=== PATIENT | female | born 1950 | race American Indian/Alaskan Native ===

== ENCOUNTER 2016-05-28 12:38 | Emergency (ER) | payer MEDICARE ==
--- NOTE | 2016-05-28 13:15 | Emergency Department Report ---
Entered by GALLITO BUNN, acting as scribe for ALLAN ANDREWS NP. Chief Complaint: Abdominal Pain Stated Complaint: RIGHT SIDE PAIN/VOMITING/VOMITING Time Seen by Provider: 05/28/16 13:10 - HPI History of Present Illness: 66 y/o female presents c/o 08/19, sharp, achy right sided abd pain that started 2 days ago. Sx include vomiting and loss of appetite but pt denies pain during urination or hematuria. - ROS Review of Systems: +loss of appetite +vomiting -pain during urination -hematuria - Exam Vital Signs: Vital Signs 05/28/16 13:10 Temperature 98.1 F Pulse Rate 114 H Respiratory 17 Rate Blood Pressure 122/79 O2 Sat by Pulse 98 Oximetry Physical Exam: R CVA tenderness RUQ ttp abd soft, not distended MSE screening note: Focused history and physical exam performed. Due to findings the following was ordered: labs ED Disposition for MSE Condition: Stable This documentation as recorded by the scribe,GALLITO BUNN,accurately reflects the service I personally performed and the decisions made by JULIANA corral TRACY M , DIRECTOR [employer].
[2016-05-28 13:44] LABS: Basophils % (Auto) 0.5 % (0.0-1.8); Eosinophils % (Auto) 1.2 % (0.0-4.3); Hemoglobin 13.4 gm/dl (10.1-14.3); Mean Corpuscular HGB Conc 34 % (30-34); Mean Corpuscular Hemoglobin 31 pg (28-32); Mean Corpuscular Volume 92 fl (79-97); Platelet Count 201 K/mm3 (140-440); Red Blood Count 4.35 M/mm3 (3.65-5.03); Red Cell Distribution Width 13.5 % (13.2-15.2); White Blood Count 3.7 K/mm3 (4.5-11.0)
[2016-05-28 13:59] LABS: Alanine Aminotransferase 10 units/L (7-56); Albumin/Globulin Ratio 1.3 %; Alkaline Phosphatase 64 units/L (35-129); Anion Gap 19 mmol/L; BUN/Creatinine Ratio 15.71; Bilirubin,Total 0.2 mg/dL (0.1-1.2); Blood Urea Nitrogen 11 mg/dL (7-17); Calcium 9.3 mg/dL (8.4-10.2); Carbon Dioxide 23 mmol/L (22-30); Chloride 99.3 mmol/L (98-107); Glucose 120 mg/dL (65-100); Lipase 14 units/L (13-60); Potassium 3.4 mmol/L (3.6-5.0); Sodium 138 mmol/L (137-145)
[2016-05-28 14:42] LABS: Bilirubin,Urine NEG (Negative); Blood,Urine MOD (Negative); Ketones,Urine TR mg/dL (Negative); Leukocyte Esterase,Urine NEG (Negative); Mucus,Urine FEW /HPF; Nitrite,Urine NEG (Negative); Protein,Urine <15 mg/dL mg/dL (Negative); Urobilinogen,Urine < 2.0 mg/dL (<2.0)
--- NOTE | 2016-05-28 21:57 | Emergency Department Report ---
ED Abdominal Pain HPI - General Chief Complaint: Abdominal Pain Stated Complaint: RIGHT SIDE PAIN/VOMITING/VOMITING Time Seen by Provider: 05/28/16 13:10 Source: patient Mode of arrival: Ambulatory Limitations: No Limitations - History of Present Illness Initial Comments: Patient is a 66-year-old female with a history of hypertension and GERD presenting with right upper quadrant abdominal pain 3 days. He reports the pain has been constant but waxes and wanes in intensity. Associated nausea and decreased appetite. Patient denies any history of gallbladder issues or prior abdominal surgeries. Exacerbated with movement, alleviated by nothing. Otherwise no fevers, chills, vomiting, chest pain, shortness of breath, trauma, travel, or sick contacts MD Complaint: abdominal pain -: Gradual, days(s) (3) Location: RUQ Radiation: none Migration to: no migration Severity: moderate Severity scale (0 -10): 6 Improves With: nothing Worsens With: movement Associated Symptoms: nausea - Related Data Home Medications Medication Instructions Recorded Confirmed Last Taken Lisinopril/Hydrochlorothiazide 1 tab PO QDAY 05/28/16 05/28/16 05/28/16 [Zestoretic 20-25 mg] amLODIPine [Norvasc] 5 mg PO DAILY 05/28/16 05/28/16 05/28/16 Previous Rx's Medication Instructions Recorded Last Taken Type Dicyclomine [Bentyl] 20 mg PO QID PRN #20 tablet 05/29/16 Unknown Rx Famotidine [Pepcid] 20 mg PO BID #30 tablet 05/29/16 Unknown Rx Allergies Allergy/AdvReac Type Severity Reaction Status Date / Time codeine AdvReac Vomiting Verified 05/28/16 13:16 ibuprofen AdvReac Vomiting Verified 05/28/16 13:16 ED Review of Systems ROS: Stated complaint: RIGHT SIDE PAIN/VOMITING/VOMITING Other details as noted in HPI Comment: All other systems reviewed and negative ED Past Medical Hx - Past Medical History Hx Hypertension: Yes Hx Heart Attack/AMI: Yes Hx GERD: Yes Hx Psychiatric Treatment: Yes (DEPRESSION) - Surgical History Additional Surgical History: - Social History Smoking Status: Current Every Day Smoker Substance Use Type: Alcohol - Medications Home Medications: Home Medications Medication Instructions Recorded Confirmed Last Taken Type Lisinopril/Hydrochlorothiazide 1 tab PO QDAY 05/28/16 05/28/16 05/28/16 History [Zestoretic 20-25 mg] amLODIPine [Norvasc] 5 mg PO DAILY 05/28/16 05/28/16 05/28/16 History Dicyclomine [Bentyl] 20 mg PO QID PRN #20 tablet 05/29/16 Unknown Rx Famotidine [Pepcid] 20 mg PO BID #30 tablet 05/29/16 Unknown Rx ED Physical Exam - General Limitations: No Limitations General appearance: alert, in no apparent distress - Head Head exam: Present: atraumatic, normocephalic - Eye Eye exam: Present: normal appearance - ENT ENT exam: Present: mucous membranes moist - Neck Neck exam: Present: normal inspection - Respiratory Respiratory exam: Present: normal lung sounds bilaterally. Absent: respiratory distress - Cardiovascular Cardiovascular Exam: Present: regular rate, normal rhythm. Absent: systolic murmur, diastolic murmur, rubs, gallop - GI/Abdominal GI/Abdominal exam: Present: soft, tenderness (RUQ, (+) murphys sign), normal bowel sounds. Absent: distended, guarding, rebound, rigid, mass, pulsatile mass , hernia - Rectal Rectal exam: Present: deferred - Extremities Exam Extremities exam: Present: normal inspection - Back Exam Back exam: Present: normal inspection - Neurological Exam Neurological exam: Present: alert, oriented X3 - Psychiatric Psychiatric exam: Present: normal affect, normal mood - Skin Skin exam: Present: warm, dry, intact, normal color. Absent: rash ED Course Vital Signs 05/28/16 05/28/16 13:10 20:15 Temperature 98.1 F Pulse Rate 114 H 88 Respiratory 17 18 Rate Blood Pressure 122/79 Blood Pressure 122/76 [Left] O2 Sat by Pulse 98 99 Oximetry ED Medical Decision Making - Lab Data Result diagrams: 05/28/16 13:18 05/28/16 13:18 - Radiology Data Radiology results: report reviewed RUQ US: negative for GB pathology Critical care attestation.: If time is entered above; I have spent that time in minutes in the direct care of this critically ill patient, excluding procedure time. ED Disposition Clinical Impression: Abdominal pain Disposition: DISCHARGED TO HOME OR SELFCARE Is pt being admited?: No Condition: Stable Instructions: Abdominal Pain (ED) Prescriptions: Dicyclomine [Bentyl] 20 mg PO QID PRN #20 tablet PRN Reason: Pain Famotidine [Pepcid] 20 mg PO BID #30 tablet Referrals: PRIMARY CARE, [Primary Care Provider] - 3-5 Days Forms: AMA Form
[2016-05-28] MEDS: NACL 0.9% 1000 ML 1,000 ML IV ONE (22:15)
[2016-05-29 01:56] VITALS: BP 126/74
--- NOTE | 2016-05-29 08:10 | Ultrasound Report ---
RIGHT UPPER QUADRANT ULTRASOUND: HISTORY: Right upper quadrant abdominal pain, cholecystitis. Technique: Transabdominal ultrasound imaging with Doppler interrogation. FINDINGS: No comparison. The gallbladder is sonolucent with no evidence of stones, polyps or wall thickening. The common duct is normal in caliber. The liver parenchyma is slightly echogenic suggesting mild fatty infiltration or other parenchymal disease. No evidence for liver mass or surface nodularity. Images of the pancreas, right kidney and aorta are within normal limits. No perihepatic ascites. IMPRESSION: Unremarkable biliary system. No evidence for cholecystitis. Slightly echogenic liver, see above.
== END 2016-05-29 01:56 | disposition home or self-care (01) ==
LOC: ED 12:38
DX: R10.11 Right upper quadrant pain (principal); I10 Essential (primary) hypertension; I25.2 Old myocardial infarction; K21.9 Gastro-esophageal reflux disease without esophagitis; F17.200 Nicotine dependence, unspecified, uncomplicated
CPT/HCPCS: 36415; 76705; 80053; 81001; 83690; 85025; 96360; 99284; J7030